=== PATIENT | female | born 1975 | race Caucasian/White ===

== ENCOUNTER 2017-01-23 23:11 | Emergency (ER) | payer SELFPAY ==
[~2017-01-23] VITALS: Ht 157.5 cm; Wt 64.9 kg
[2017-01-23 23:11] VITALS: BP 120/71
--- NOTE | 2017-01-24 00:08 | PHYS DOC ---
Past History Past Medical History: No Pertinent History Past Surgical History: Appendectomy, Tubal ligation, Other Alcohol Use: None Drug Use: None Adult General Chief Complaint Chief Complaint: Neck Pain HPI HPI Patient is a 41-year-old female who presents here today secondary to pain and a burning sensation to her neck ever since she had the ablation done to her neck on January 02. Patient reports she's had neck pain since 2012. Patient denies any history of hypertension diabetes liver longer kidney problems. Patient reports she does smoke no alcohol or drugs. Patient portion allergic to codeine and tramadol. Patient reports she's had a bilateral tubal ligation in the past as well as an appendectomy. Patient denies any recent fevers shakes chills nausea vomiting or diarrhea. Patient reports she has had upper respiratory type infections along with the rest of her family. Patient reports that she has no change in her baseline physical exam. Patient reports that shows has some weakness to her upper extremities which is not new for her. Patient reports that she is currently being managed by a chronic pain specialist who she reports is not right for any narcotics for her. Patient reports that she has a prescription for Neurontin and Zanaflex at home to help her with her pain. Patient today is requesting that we get an x-ray of her neck to make sure everything looks okay. Patient reports she does not wish for any pain management here in the ED. 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 Patient denies any other recent trauma. Patient's physical exam is remarkable for tenderness to palpation along the C1 C2 C3 area. Patient has minimal tenderness to palpation her paraspinal area. Patient's neurological exam was nonfocal. Patient is a bleeding the ER with any difficulty. Patient's upper and lower extremities without any neurological deficits. C-spine/5 view. No fracture, dislocation, bony abnormalities noted. Interpreted by Doctor Beach. Assessment and plan 41-year-old female with acute exacerbation of her chronic neck pain. Patient reports that she is not seeking any pain management she is wants to make sure her x-ray looks okay. Patient reports she is "just doing what her mass communications professor told her to do" Patient was reassured regarding her C-spine x-ray. I have discussed with the patient that she will need an MRI to better assess her nerves. Patient understands this and will follow up with her doctor for further recommendations. Review of Systems Review of Systems GI: Denies abdominal pain, nausea, vomiting All other review systems are negative except as documented in the history of present illness. Allergies Allergies Allergies Coded Allergies Type Severity Reaction Last Updated Verified codeine Allergy Intermediate 01/23/17 Yes tramadol Allergy Intermediate 01/23/17 Yes Physical Exam Physical Exam Constitutional: Well developed, well nourished, no acute distress, non-toxic appearance. HENT: Normocephalic, Eyes: no discharge. Neck: See above Cardiovascular:Heart rate regular rhythm, Lungs & Thorax: Bilateral breath sounds clear to auscultation Abdomen: Bowel sounds normal, soft, no tenderness, no masses, no pulsatile masses. Skin: Warm, dry, no erythema, no rash. Current Patient Data Vital Signs Vital Signs Date Time Temp Pulse Resp B/P (MAP) Pulse Ox O2 Delivery O2 Flow Rate FiO2 01/23/17 23:11 98.3 80 18 98 Room Air EKG EKG [] Radiology/Procedures Radiology/Procedures [] Course & Med Decision Making Course & Med Decision Making Pertinent Labs and Imaging studies reviewed. (See chart for details) [] Dragon Disclaimer Dragon Disclaimer This chart was dictated in whole or in part using Voice Recognition software in a busy, high-work load, and often noisy Emergency Department environment. It may contain unintended and wholly unrecognized errors or omissions. Departure Departure: Impression: Primary Impression: Neck pain Disposition: 01 HOME, SELF-CARE Condition: STABLE Referrals: NON,STAFF (PCP) Patient Instructions: Soft Tissue Injury of the Neck Additional Instructions: Please follow up with your doctor for further evaluation of your neck pain. I feel that the best person to evaluate your discomfort after the ablation would be the physician who performed the ablation. Please make an appointment to see them this week. FELY BEACH MD Jan 24, 2017 00:08
--- NOTE | 2017-01-24 07:54 | RAD ---
Cervical spine radiograph 01/23/2017 at 2047 hours Indication: Severe neck pain, stiffness and headache. Comparison: None available Technique: AP, odontoid views, bilateral oblique views and lateral view are provided. Findings: The cervical spine is visualized from the craniocervical junction through the cervicothoracic junction. There is minimal retrolisthesis of C3 on C4. There is mild neural foraminal stenosis at C4-C5 on the right and C4-C5 and C5-C6 on the left. Mild facet arthropathy noted at C2-C3. No significant uncovertebral joint arthropathy. The lateral masses of C1 articulate appropriately with the C2 vertebral body. No acute fracture is identified. Impression: 1. There is minimal retrolisthesis of C3 on C4. 2. Mild neural foraminal stenosis at C4-C5 on the right and C4-C5 and C5-C6 on the left.
== END 2017-01-24 00:12 | disposition home or self-care (01) ==
LOC: ER 23:11
DX: M54.2 Cervicalgia (principal); G89.29 Other chronic pain; Z88.5 Allergy status to narcotic agent; Z88.6 Allergy status to analgesic agent
CPT/HCPCS: 72050; 99284